=== PATIENT | male | born 1970 | race Caucasian/White ===

== ENCOUNTER 2021-02-10 06:37 | Emergency (ER) | payer BC ==
[~2021-02-10] VITALS: Ht 185.4 cm; Wt 113.4 kg
[2021-02-10] MEDS ORDERED: AMLOATOR PO (07:11)
[2021-02-10] MEDS ORDERED: CIPRODEX OTIC7.5 M1 LEFTEAR (07:57)
== END 2021-02-10 08:05 | disposition home or self-care (01) ==
LOC: ER 06:37
DX: H72.92 Unspecified perforation of tympanic membrane, left ear (principal); I10 Essential (primary) hypertension
CPT/HCPCS: 99282